=== PATIENT | female | born 1980 | race Caucasian/White ===

== ENCOUNTER 2021-03-24 01:55 | Emergency (ER) | payer BC ==
[~2021-03-24] VITALS: Ht 170.2 cm; Wt 55.8 kg
--- NOTE | 2021-03-24 01:58 | NUR ---
40 year old female BIB by [facility] complaining of anxiety, shakiness. Denies abdominal pain, chest pain, shortness of breath.
--- NOTE | 2021-03-24 02:02 | NUR ---
MD Rosenbaum in room to do MSE.
[2021-03-24] MEDS ORDERED: LORAZEPAM 0.5 MG TABLET PO ONE (02:15)
--- NOTE | 2021-03-24 02:15 | NUR ---
Attempted to administer the medication. Patient stated she did not want to take the medication right now and wanted to "relax for twenty minutes."
--- NOTE | 2021-03-24 02:15 | NUR ---
Stayed with the patient to intake counselor her through her current feelings in an attempt to help reduce her anxiety.
[2021-03-24] MEDS ORDERED: LORAZEPAM 1 MG TABLET ONE (02:16)
--- NOTE | 2021-03-24 02:50 | NUR ---
Patient agreed to take the medication after relaxing for a period of time.
--- NOTE | 2021-03-24 02:50 | NUR ---
Patient placed into position of comfort with a nice warm blanket, and a soft pillow with dim lights for relaxation.
--- NOTE | 2021-03-24 03:32 | NUR ---
Patient is sleeping, no acute distress noted at this time.
--- NOTE | 2021-03-24 04:30 | NUR ---
Patient is sleeping, no acute distress is noted at this time.
--- NOTE | 2021-03-24 05:30 | NUR ---
Patient contacted her mother to come pick her up via cellphone.
[2021-03-24 06:10] VITALS: BP 111/73
--- NOTE | 2021-03-24 06:10 | NUR ---
Patient discharged to home in stable condition. Written and verbal after care instructions given. Patient verbalizes understanding of instructions. Stressed follow up or return to ER for worsening s/s. Patient ambulates with steady gait, V/S stable, left with all belongings, released to the care of her mother.
== END 2021-03-24 06:10 | disposition home or self-care (01) ==
LOC: ER 02:00
DX: F41.0 Panic disorder [episodic paroxysmal anxiety] (principal)
CPT/HCPCS: A4663

== ENCOUNTER 2021-06-17 10:20 | Emergency (ER) | payer BC ==
[~2021-06-17] VITALS: Ht 172.7 cm; Wt 54.9 kg
--- NOTE | 2021-06-17 11:05 | NUR ---
DR Padron at the bedside for MSE.
[2021-06-17 11:31] LABS: *URINE HCG, QUAL NEG (NEGATIVE)
[2021-06-17 11:41] LABS: *AMPHETAMINE, URINE NEGATIVE (NEGATIVE); *CANNABINOID, URINE NEGATIVE (NEGATIVE); *COCCAINE, URINE NEGATIVE (NEGATIVE); *OPIATE, URINE NEGATIVE (NEGATIVE); *PHENCYCLIDINE SCREEN,URINE NEGATIVE (NEGATIVE)
[2021-06-17 11:41] LABS: HEMATOCRIT 39.9 % (31.2-41.9); MEAN CORPUSCULAR HEMOGLOBIN 29.8 uug (24.7-32.8); MEAN CORPUSCULAR VOLUME 90.4 fL (75.5-95.3); PLATELET COUNT (AUTO) 209 K/uL (179-408)
--- NOTE | 2021-06-17 11:45 | NUR ---
Pt stating being afraid she is dying. Sat w/ pt few min, assurance given. Offered to have anti anxiety med, pt decline stating no Bezo meds.
[2021-06-17 11:50] LABS: CARBON DIOXIDE 26 mmol/L (21-32); CHLORIDE 100 mmol/L (98-107); CREATININE 0.6 mg/dL (0.6-1.3); GLUCOSE 99 mg/dL (74-106); POTASSIUM 3.9 mmol/L (3.5-5.1); UREA NITROGEN, BLOOD 9 mg/dL (7-18)
[2021-06-17 11:57] LABS: ALANINE AMINOTRANSFERASE 16 U/L (14-59); ALKALINE PHOSPHATASE 47 U/L (50-136); ASPARTATE AMINOTRANSFERASE 14 U/L (15-37); BILIRUBIN,DIRECT 0.2 mg/dL (0.0-0.2); BILIRUBIN,TOTAL 0.5 mg/dL (0.2-1.0); TOTAL PROTEIN, SERUM 7.5 g/dL (6.4-8.2)
--- NOTE | 2021-06-17 11:57 | NUR ---
Pt agreed to have Zyprexa to calm down. Dr Padron made aware and order received.
[2021-06-17 12:00] LABS: ETHANOL < 3 MG/DL (0-0); THYROID STIMULATING HORMONE 1.228 mIU/mL (0.358-3.740)
[2021-06-17] MEDS ORDERED: OLANZAPINE 10 MG VIAL IM ONE ×2 (12:00→12:15)
[2021-06-17 12:08] LABS: ACETAMINOPHEN < 2.0 ug/mL (10-30)
--- NOTE | 2021-06-17 12:23 | NUR ---
Pt is medically cleared by Dr Padron. Left massage for PET, Art Cappilla RADIOLOGY RECEPTIONIST. Pt is resting in bed, states having less racing thoughts and is calmer.
--- NOTE | 2021-06-17 12:35 | NUR ---
Lunch provided, pt ate w/ moderate appetite. No c/o pain, nausea.
--- NOTE | 2021-06-17 12:44 | NUR ---
Patient is resting comfortably in bed with eyes closed.
--- NOTE | 2021-06-17 13:06 | NUR ---
Spoke to Josh Luna LCSW, for psych eval, no ETA provided.
--- NOTE | 2021-06-17 13:26 | NUR ---
Recieved a call from Josh Moreira LCSW, stating he spoke to Pacheco Strange, SL[employer]ER and pt needs to follow up w/ her PMD.
--- NOTE | 2021-06-17 13:41 | NUR ---
Spoke to Berny Marsian social services analyst per Dr Moise request. ETA 15 min.
--- NOTE | 2021-06-17 14:50 | NUR ---
Berny Caruso social media marketer @ bedside.
[2021-06-17 15:07] VITALS: BP 116/60
--- NOTE | 2021-06-17 15:18 | NUR ---
Certified Detention Deputy Consultation: Certified Detention Deputy consultation requested for Anxiety. Patient is a 40 year old female who came to the ED by ambulance. Per ED physicians report, patient was reporting anxiety and paranoia. This BRIM STRETCHING MACHINE OPERATOR met with the patient, bedside in the ED. Patient was awake, alert, oriented, however reported feeling very tired due to not having slept well for nearly 1 weeks. Patient lives alone, and reported having some family circumstances that were effecting her anxiety and sleep. Patient did not want to elaborate on these circumstances, but did state that she was not on good terms with her mother at this time. Patient reported being at [facility] inpatient psychiatric unit about 1 month ago. Patient also reported having a psychiatrist, Dr. Osman Collado, who she had been seeing since the beginning of this year, along with a neurologist, Dr. Islas. Patient stated being prescribed medications such as Ativan and Baclofen, but not being consistent with them. Patient stated that her waste transportation technician also started her on control recently. Patient stated she had stopped her Ativan 10 days ago, and was taking holistic vitamins and magnesium to help with her Anxiety and sleep, but that even though magnesium helped with sleep for a couple of days, she was still not able to sleep well the other nights. This BRIM STRETCHING MACHINE OPERATOR referred patient back to her psychiatrist for medication evaluation, and patient expressed agreement. Patient denied SI and HI. Patient denied hallucinations. Patient presented with pressured speech. Discharge plans discussed, and patient stated that she will be going home once discharged, and that she would either call an uber or a friend to pick her up. Need for community resources were assessed, and patient stated that she would like to find a place that offers CBT and DBT treatment. This BRIM STRETCHING MACHINE OPERATOR offered to provide patient with information to [facility] outpatient mental health, and patient stated she is familiar with [facility] and would follow-up with them. This BRIM STRETCHING MACHINE OPERATOR also suggested for patient to contact her health insurance ([employer]) to ask for a list of in-network service providers, and patient expressed understanding and agreement. This BRIM STRETCHING MACHINE OPERATOR discussed all above with Dr. Moise. No further SS interventions needed at this time.
--- NOTE | 2021-06-17 15:39 | NUR ---
Patient discharged to home in stable condition. Written and verbal after care instructions given. Patient verbalizes understanding of instructions. Stressed follow up or return to ER for worsening s/s. Pt walked out of ER w/ steady gait.
== END 2021-06-17 15:41 | disposition home or self-care (01) ==
LOC: ER 10:20
DX: F41.9 Anxiety disorder, unspecified (principal); G47.00 Insomnia, unspecified; F22 Delusional disorders; F31.9 Bipolar disorder, unspecified
CPT/HCPCS: 36415; 84443; 84703; 85025; A4663; G0480; J2358

== ENCOUNTER 2021-06-30 04:18 | Emergency (ER) | payer BC ==
[~2021-06-30] VITALS: Ht 170.2 cm; Wt 54.4 kg
--- NOTE | 2021-06-30 04:20 | NUR ---
Pt rosanna [facility] 82 from home. Pt. called because she was feeling anxious, depressed and scared because she lives home alone. Pt. told ems she was not suicidal, she just wanted help because of her feelings of anxiety. Pt. has been here before and says she has bipolar disorder and anxiety which she is under the care of a psychiatrist for.
[2021-06-30] MEDS ORDERED: LORAZEPAM 0.5 MG TABLET PO ONE (04:30)
--- NOTE | 2021-06-30 04:34 | NUR ---
Dr. Tripathi at bedside for mse.
[2021-06-30] MEDS ORDERED: LORAZEPAM 1 MG TABLET ONE (04:39)
[2021-06-30] MEDS ORDERED: CHLORDIAZEPOXIDE HCL 25 MG CAPSULE PO ONE ×2 (04:45→06:45)
[2021-06-30] MEDS ORDERED: CHLORDIAZEPOXIDE HCL 5 MG CAPSULE ONE (04:47)
--- NOTE | 2021-06-30 05:55 | NUR ---
Patient discharged to home in stable condition. Written and verbal after care instructions given. Patient verbalizes understanding of instructions. Stressed follow up or return to ER for worsening s/s. Patient out of ER with steady gait, no acute signs of distress, VSS, all belongings taken.
[2021-06-30 06:02] VITALS: BP 121/60
== END 2021-06-30 06:03 | disposition home or self-care (01) ==
LOC: ER 04:19
DX: F41.0 Panic disorder [episodic paroxysmal anxiety] (principal); G47.00 Insomnia, unspecified
CPT/HCPCS: A4663; J8499